=== PATIENT | male | born 2000 | race Caucasian/White ===

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

== ENCOUNTER 2018-02-25 23:15 | Emergency (ER) | payer BC, OTHER ==
[~2018-02-25] VITALS: Ht 180.3 cm; Wt 84.1 kg
[2018-02-25 23:20] VITALS: TEMP 36.7; Ht 180.3 cm; Wt 84.1 kg
[2018-02-26 00:26] VITALS: BP 123/73; PULSE 86; O2SAT 97
--- NOTE | 2018-02-26 02:40 | EMERGENCY ROOM VISIT NOTE ---
ED Visit Note First contact with patient: 23:23 CHIEF COMPLAINT: Wrist injury HISTORY OF PRESENT ILLNESS: This 17-year-old patient presents to the emergency department with family complaining of pain in the right wrist after falling during flag football. The patient is able to move their wrist. The patient states the pain is throbbing and 5/10. No laceration, no weakness. No numbness or tingling. The patient denies any other injury. The patient is able to move their fingers and elbow without difficulty. The patient has had a previous fracture to this wrist. The patient has taken Advil for the pain. Patient follows with [facility]. REVIEW OF SYSTEMS: A 6 system review of systems was performed with positives and pertinent negatives in the HPI. ALLERGIES: None MEDICATIONS: None PMH: Orthopedic injuries SOCIAL HISTORY: No drug use PHYSICAL EXAM: Vital Signs: Reviewed Nurse's notes, vital signs stable. GENERAL : Pleasant male, in no acute distress, but appears to be in pain, well-developed , well-neurished. NEURO: Alert and oriented to person place and time. Normal sensation to light and sharp touch. MUSCULOSKELETAL: There is no deformity of the right wrist. There is tenderness and edema over distal ulna. There is no snuff box tenderness. Range of motion is limited secondary to pain. There is no tenderness of the elbow, hand or fingers. Combination Worker strength 4/5. Radial pulse 2+ . SKIN: Normal and intact. The hand is warm and well perfused with capillary refill less than 2 seconds. EMERGENCY DEPARTMENT COURSE: I examined the patient. An X-ray of the right wrist was reviewed by myself and my attending and showed possible ulnar styloid fracture. A volar Ortho-Glass splint was placed under my direction and the position was satisfactory. Neurovascular status rechecked and intact. Patient was advised to follow-up with his orthopedist in a day or 2 or here in the ER sooner for severe pain, numbness, tingling, worsening signs or symptoms or as needed. The patient was discharged home in good condition. DIAGNOSIS: Right wrist fracture DISCHARGE INSTRUCTIONS & TREATMENT: As above Problem List Medical Problems: (1) No known problems Status: Chronic Current/Historical Medications No Active Prescriptions or Reported Meds Allergies Coded Allergies: No Known Allergies (Unverified , 02/26/18) Vital Signs Date Time Temp Pulse Resp B/P (MAP) Pulse Ox O2 Delivery O2 Flow Rate FiO2 4/11/18 00:26 86 18 123/73 97 02/26/18 00:18 84 18 116/71 98 Room Air 02/25/18 23:20 36.7 90 16 119/83 99 Room Air Departure Information Impression Primary Impression: Right wrist fracture Dispostion Home / Self-Care Condition GOOD Prescriptions No Active Prescriptions or Reported Meds Forms WORK / SCHOOL INSTRUCTIONS, HOME CARE DOCUMENTATION FORM, IMPORTANT VISIT INFORMATION Patient Instructions Fx Wrist Tx, My [facility] Additional Instructions Ibuprofen(Motrin, Advil) may be used for fever or pain. Use 600mg every six hours as needed. Take with food. Avoid using more than 2400mg in a 24 hour period. Do not use 2400mg per day for more than three consecutive days without physician direction. Prolonged inappropriate use can lead to stomach upset or ulcers. This medication can be taken if you need to drive, work, or perform activities which may be dangerous when taking narcotic pain medication. (AND/OR) Acetaminophen(Tylenol) may be used for fever or pain. Use 1000mg every six hours as needed. Avoid using more than 3000mg in a 24 hour period. This medication can be taken if you need to drive, work, or perform activities which may be dangerous when taking narcotic pain medication. Ice compresses for 20 minutes at a time four times daily for 2-3 days. Rest and elevate your injury. Do not get the splint wet. If your splint feels excessively tight, you have worsening pain, develop numbness or tingling, or your digits appear blue, loosen the alesia wrap. Then reapply the alesia wrap gently without removing the splint. If your symptoms are not quickly relieved return to the ER for re- evaluation. Continue current medications. Return to the ER immediately for any numbness, tingling, severe pain, extreme swelling in the extremity or as needed. Call your Orthopedics tomorrow to arrange follow up for your injury.
--- NOTE | 2018-02-26 07:25 | DIAGNOSTIC IMAGING REPORT ---
R WRIST MIN 3 VIEWS ROUTINE CLINICAL HISTORY: 17 years-old Male presenting with fall, pain. TECHNIQUE: Frontal, bilateral oblique, and lateral views of the right wrist were obtained. COMPARISON: None. FINDINGS: No acute fracture or malalignment. No advanced degenerative change. No radiographic soft tissue abnormality. IMPRESSION: No acute osseous injury. Electronically signed by: Sreekanth Hodge M.D. 02/26/2018 7:23 AM Dictated Date/Time: 02/26/2018 7:23 AM
== END 2018-02-26 00:26 | disposition home or self-care (01) ==
LOC: C.EDB 23:16 → C.EDC 02-26 00:26
DX: S62.101A Fracture of unspecified carpal bone, right wrist, initial encounter for closed fracture (principal); W19.XXXA Unspecified fall, initial encounter; Y92.9 Unspecified place or not applicable; Y93.62 Activity, american flag or touch football